=== PATIENT | male | born 1930 | race Caucasian/White ===

== ENCOUNTER 2018-07-29 16:09 | Emergency (ER) | payer MEDICARE, BC ==
[~2018-07-29] VITALS: Ht 175.3 cm; Wt 71.7 kg
[2018-07-29] MEDS ORDERED: DULOXETINE CAP 60MG (16:29)
[2018-07-29] MEDS ORDERED: CEPHALEXIN CAP 500MG (16:29)
[2018-07-29] MEDS ORDERED: SILDENAFIL 100 MG (16:30)
[2018-07-29] MEDS ORDERED: URIBEL (16:30)
[2018-07-29] MEDS ORDERED: FLUZONE HIGH (16:30)
[2018-07-29] MEDS ORDERED: OMEPRAZOLE CAP 20MG (16:30)
[2018-07-29] MEDS ORDERED: LATANOPROST 0.005% (16:30)
[2018-07-29] MEDS ORDERED: NEOMY/BACITRA/POLYMYXIN B OINT UD PACKET TP ONE ×2 (17:52→18:00)
--- NOTE | 2018-07-29 18:31 | NUR ---
Patient discharged to home in stable conditon. Written and verbal after care instructions given. Patient verbalizes understanding of instructions.pt using own walker.
== END 2018-07-29 18:42 | disposition home or self-care (01) ==
LOC: ER 16:10
DX: S01.01XA Laceration without foreign body of scalp, initial encounter (principal); S51.812A Laceration without foreign body of left forearm, initial encounter; S29.9XXA Unspecified injury of thorax, initial encounter; I10 Essential (primary) hypertension; I25.10 Atherosclerotic heart disease of native coronary artery without angina pectoris; W18.30XA Fall on same level, unspecified, initial encounter; Y93.89 Activity, other specified; Y92.89 Other specified places as the place of occurrence of the external cause; Y99.8 Other external cause status
CPT/HCPCS: 70450; 71120; 99284; A4663